=== PATIENT | female | born 1965 | race American Indian/Alaskan Native ===

== ENCOUNTER → 2023-04-27 | Emergency (ER) | payer MEDICAID ==
[~2023-04-27] VITALS: Ht 157.5 cm; Wt 81.4 kg
[~2023-04-27] MED LIST: AMOX-580 PO; No meds; PHEN-786 PO
[2023-04-27 11:58] LABS: BILIRUBIN,URINE NEGATIVE (Neg); CLARITY,URINE SLIGHTLY CLOUDY (Clear); COLOR,URINE YELLOW (Yellow); GLUCOSE, URINE NEGATIVE (Neg); KETONES,URINE NEGATIVE (Neg); LEUKOCYTE ESTERASE ,URINE LARGE (Neg); NITRITES, URINE NEGATIVE (Neg); OCCULT BLOOD,URINE LARGE (Neg); PH,URINE 7.5 (4.8-8.0); PROTEIN,URINE NEGATIVE (Neg); UROBILINOGEN,URINE 0.2 E.U/dL (0.2-1.0)
[2023-04-27 12:00] LABS: URINE HCG NEGATIVE (NEG)
[2023-04-27 12:01] LABS: UA COLLECTION TYPE CLN CATCH MIDSTREAM
[2023-04-27 12:03] LABS: WBC,URINE TNTC /HPF (0-4)
[2023-04-27 12:04] LABS: BACTERIA,URINE 2+ /HPF (Neg); MUCUS STRANDS NONE SEEN /LPF (Neg); RBC,URINE TNTC /HPF (0-2); SQUAMOUS EPITHELIAL CELL,UR FEW /LPF (FEW); WBC CLUMPS,URINE FEW /HPF (NEGATIVE)
[2023-04-27 12:42] LABS: BASOPHILS % (AUTO) 0.3 % (0-1); EOSINOPHILS # (AUTO) 0.1 X10'3 (0-0.9); HEMATOCRIT 43.5 % (35.0-45.0); LYMPHOCYTES # (AUTO) 1.2 X10'3 (1.1-4.8); LYMPHOCYTES % (AUTO) 11.7 % (21-51); MEAN CORPUSCULAR HEMOGLOBIN 32.8 PG (27.0-31.0); MEAN CORPUSCULAR HGB CONC 34.6 g/dL (33.0-36.5); MEAN PLATELET VOLUME 8.6 FL (7.4-10.4); MONOCYTES # (AUTO) 0.7 X10'3 (0-0.9); MONOCYTES % (AUTO) 6.8 % (2-12); NEUTROPHILS # (AUTO) 7.9 X10'3 (1.8-7.7); NEUTROPHILS % (AUTO) 80.2 % (42-75); PLATELET COUNT 226 X10'3 (140-440); RED BLOOD COUNT 4.57 X10'6 (4.20-5.60); RED CELL DISTRIBUTION WIDTH 12.4 % (11.5-14.5); WHITE BLOOD COUNT 9.8 X10'3 (4.5-11.0)
[2023-04-27 12:56] LABS: ALANINE AMINOTRANSFERASE 53 U/L (12-78); ALBUMIN 4.2 G/DL (3.4-5.0); ALBUMIN/GLOBULIN RATIO 0.9 (1.1-1.5); ALKALINE PHOSPHATASE 122 IU/L (46-116); ANION GAP 7 (8-16); ASPARTATE AMINO TRANSFERASE 30 U/L (10-37); BILIRUBIN,TOTAL 0.4 MG/DL (0.1-1.0); BLOOD UREA NITROGEN 9 MG/DL (7-18); BUN/CREATININE RATIO 12.2 (10.0-20.0); CHLORIDE 99 MMOL/L (99-107); CREATININE 0.74 MG/DL (0.40-0.90); GLUCOSE 102 MG/DL (70-104); LIPASE 32 U/L (16-77); POTASSIUM 4.1 MMOL/L (3.5-5.1); SODIUM 135 MMOL/L (135-145); TOTAL CARBON DIOXIDE 28.9 MMOL/L (24-32); TOTAL PROTEIN 8.7 G/DL (6.4-8.2); eCRCL 68 ML/MIN; eGFR 81 ML/MIN
[2023-04-27 15:55] VITALS: BP 122/70; PULSE 70; RESP 18; TEMP 97; O2SAT 98
== END | disposition home or self-care (01) ==
LOC: ER 11:29
DX: N30.91 Cystitis, unspecified with hematuria (principal); Z88.5 Allergy status to narcotic agent
CPT/HCPCS: 36415; 74176; 80053; 81001; 81025; 83690; 85025; 87088; 99284

== ENCOUNTER 2025-04-17 15:00 | Emergency (ER) | payer MEDICAID ==
[~2025-04-17] VITALS: Ht 157.5 cm; Wt 83.7 kg
[~2025-04-17 15:00] MED LIST changes: -AMOX-580 PO
[2025-04-17 15:08] VITALS: BP 149/113; PULSE 102; RESP 16; O2SAT 99
[2025-04-17 18:37] VITALS: TEMP 97.8
[2025-04-17] MEDS ORDERED: CYCL-1 PO (18:41)
--- NOTE | 2025-04-17 18:42 | Physician Documentation ---
History of Present Illness ~ Chief Complaint: See Chief Complaint Stated Complaint: FALL X2 WEEKS AGO Time Seen by MD: 17:30 OK to notify your PCP?: Yes Primary Medical Doctor: [facility] Source: patient Mode of Arrival: POV Exam Limitations: no limitations HPI Reports having right neck pain and left scalp pain after she was running and chasing her dog and the left side of her head hit a cabinet 2 weeks ago. She denies any loss of consciousness, any blood thinners or vision changes. She reports that she has been having daily headaches as well as neck pain on the right side. She has been using Tylenol and naproxen for pain relief at home. Medication Reconciliation Allergies: Coded Allergies: codeine (Verified Allergy, Intermediate, Difficulty breathing and hives, 04/17/25) Scheduled Cyclobenzaprine* (Cyclobenzaprine*), 1 TAB PO Q8H Scheduled PRN Phenazopyridine Hcl (Pyridium tablet), 2 TAB PO Q8H PRN for urinary burning Miscellaneous Medications [No meds], (Reported) Past Medical History Past Medical History: No Pertinent History Review of Systems All Other Systems at this time: Reviewed and Negative Physical Exam Vital Signs: RN Vital Signs have been reviewed: Yes, Temperature: 97.8, Source: Temporal, Heart Rate: 102, Respiratory Rate: 16, BP: 149/113, Pulse Oximetry: 99, Weight: 83.700 Oxygen Flow Rate: 0 Pulse Oximetry Reflects: adequate oxygenation Physical Exam General: Well developed, awake, alert, and conversant, in no apparent distress. Skin: Warm, dry. HEENT: Head: Normocephalic, atraumatic without palpable deformities. Tenderness to palpation of left posterior scalp, no hematoma appreciated. Eyes: Sclerae and conjunctiva normal; pupils equal, round, reactive to light. EOM intact. No nystagmus or periorbital ecchymosis noted. Ears: Canals are patent. Tympanic membranes are clear. No bumps sign. No hemotympanum. Nose/face: Atraumatic. There is no septal hematoma. Facial bones are nontender to palpation and stable with attempts at manipulation. Mouth/throat: No intraoral trauma. Teeth and mandible are intact. Neck: Trachea midline. No midline point tenderness, step-offs, or deformity to firm palpation of posterior cervical spine. Tenderness to palpation of right trapezius muscle extending up into the neck. No JVD. Full range of motion of neck. Chest: No surface trauma. Nontender without crepitus or deformity. No palpable subcutaneous air. Lungs have good tidal volume with normal breath sounds bilaterally. Heart: Regular rate and rhythm. No murmurs, rubs, clicks, or gallops heard. Abdomen: No abrasions, ecchymosis or surface trauma. Bowel sounds are active. No distention. Nontender to palpation: No guarding, rebound, or rigidity. No masses. Extremities: No surface trauma. Full range of motion without limitation or pain. Good strength in all extremities. Sensation to light touch intact. All peripheral pulses are intact and equal. Neurological: A&Ox3, CN II-XII intact. Motor and sensory exam nonfocal. Reflexes are symmetric. Progress Results/Orders Reviewed/noted all lab results: Yes Results/Orders Completed Orders - ALEYDA PHILLIPS Cyclobenzaprine Tablet (Flexeril Tablet) (04/17/25 18:35) Medications Received in ER Medications (Trade) Dose Ordered Sig/Alfreda Route PRN Reason Start Time Stop Time Status Last Admin Dose Admin (Flexeril tablet) 10 mg ONCE ONCE PO 04/17/25 18:35 04/17/25 18:36 DC 04/17/25 18:41 10 MG Vital Signs 04/17/25 04/17/25 15:08 18:37 Temp 97.8 97.8 Pulse 102 Resp 16 B/P (MAP) 149/113 Pulse Ox 99 O2 Flow Rate 0 Medical Decision Making Additional information obtaine: old records Findings Physical exam is unremarkable except for some tenderness of the right trapezius muscle as well as some tenderness to the scalp of the left side of her head. According to NEXUS CT head and neck criteria, no imaging is indicated. We discussed various symptoms of a concussion and she appreciates multiple symptoms. We discussed her follow up instructions as well as discharge instructions. To help with her neck pain and stiffness, I gave a 1 time dose of Flexeril in the department as well as a prescription to the pharmacy. Differential Dx:Considerations: Include: Discitis, DJD, Meningitis, Vertebral artery dissect. Additional Comment Cervical fracture, intracranial hemorrhage Departure Disposition: 01 HOME / SELF CARE / HOMELESS Impression: Primary Impression: Neck pain on right side Additional Impression: Concussion Condition: Stable Discharge Instructions: Acute Torticollis, Adult, Concussion, Adult, [id number] Additional Instructions: Return back here for any new or worsening symptoms. Follow up with her primary care provider in the next week if this is not resolved. Please take care not to re-injure the brain over the next 4 weeks. Can take naproxen or Tylenol for pain relief. Referrals: NO PRIMARY CARE PROVIDER (PCP) Prescriptions Cyclobenzaprine* (Cyclobenzaprine*) 10 Mg Tablet 1 TAB PO Q8H for muscle spasms for 10 Days, #30 TAB 0 Refills Prov: ALEYDA PHILLIPS 04/17/25 Education Educated: Patient Educated regarding: diagnosis, treatment, prognosis, need for follow up Additional Comment Medical Screen Exam This patient recieved a medical screening examination. After reviewing the individual's medical complaints with presenting symptoms and performing an appropriate physical examination, it was determined that no immediate life- threatening emergency medical condition is present. This individual is also not a women having contractions. Signature Scribe Signature: . Attestation: Scribed for Aleyda Phillips by Aleyda Garcia NP . 04/17/25 20:00 Parts of this note were created using [employer] voice recognition software program. While efforts were made to correct any mistakes made by this voice recognition software program, nonsensical phrases may remain in this note. In addition, there may be errors and syntax, grammar, content and spelling. ALEYDA PHILLIPS Apr 17, 2025 18:42
== END 2025-04-17 18:47 | disposition home or self-care (01) ==
LOC: ER 15:01
DX: S06.0X0A Concussion without loss of consciousness, initial encounter (principal); M54.2 Cervicalgia; Z88.5 Allergy status to narcotic agent; X58.XXXA Exposure to other specified factors, initial encounter; Y93.89 Activity, other specified; Y92.89 Other specified places as the place of occurrence of the external cause; Y99.8 Other external cause status
CPT/HCPCS: 99283